=== PATIENT | male | born 1950 | race African-American/Black ===

== ENCOUNTER 2017-04-30 10:43 | Outpatient (CLI) | payer MEDICARE ==
[2017-04-30 11:32] LABS: Anion Gap 15 mmol/L (10-20); BUN (Urea Nitrogen) 25 mg/dL (8.4-25.7); Calc. Creatinine Clearance 0 mL/min (70-130); Calcium 9.2 mg/dL (7.8-10.44); Carbon Dioxide 25 mmol/L (23-31); Chloride 105 mmol/L (98-107); Estimated GFR-MDRD 48; Glucose 208 mg/dL (80-115); Potassium 4.8 mmol/L (3.5-5.1); Sodium 140 mmol/L (136-145)
[2017-04-30 13:12] LABS: Hemoglobin 11.9 g/dL (14.0-18.0)
[2017-04-30 16:59] LABS: Creatinine, Urine 267.78 mg/dL (63-166)
== END 2017-04-30 10:44 | disposition home or self-care (01) ==
LOC: MADLAB 10:43
PROVIDERS: ATTEND Internal Medicine Nephrology
DX: I12.9 Hypertensive chronic kidney disease with stage 1 through stage 4 chronic kidney disease, or unspecified chronic kidney disease (principal); E11.22 Type 2 diabetes mellitus with diabetic chronic kidney disease; N18.3 Chronic kidney disease, stage 3 (moderate); R60.0 Localized edema
CPT/HCPCS: 36415; 80048; 82306; 82570; 83970; 84156; 85014; 85018

== ENCOUNTER 2019-04-28 12:09 | Outpatient (CLI) | payer MEDICARE ==
--- NOTE | 2019-04-28 12:50 | RAD ---
2 views of the chest: 04/28/2019 COMPARISON: None HISTORY: Type 2 diabetes without complications FINDINGS: Heart and mediastinal contours are grossly unremarkable. There is atherosclerotic calcifica tion of the aortic arch. No pneumothorax or pleural fluid. No focal consolidation or alveolar edema. Impression: No acute findings.
== END 2019-04-28 12:10 | disposition home or self-care (01) ==
LOC: MADRAD 12:09
PROVIDERS: ATTEND Physician Assistant
DX: E11.9 Type 2 diabetes mellitus without complications (principal)
CPT/HCPCS: 71046